=== PATIENT | female | born 1980 ===

== ENCOUNTER 2018-02-04 18:02 | Emergency (ER) | payer OTHER ==
[2018-02-04 18:03] VITALS: BMI 29.3
[2018-02-04 18:26] VITALS: RESP 18; O2SAT 100
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
[2018-02-04 20:46] VITALS: BP 128/86; PULSE 65; TEMP 98
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
== END 2018-02-04 21:00 | disposition home or self-care (01) ==
LOC: ED 18:02
DX: S09.90XA Unspecified injury of head, initial encounter (principal); V49.59XA Passenger injured in collision with other motor vehicles in traffic accident, initial encounter; Y92.410 Unspecified street and highway as the place of occurrence of the external cause